=== PATIENT | female | born 1945 | race Caucasian/White ===

== ENCOUNTER 2018-12-01 11:57 | Emergency (ER) | payer MEDICARE ==
[~2018-12-01] VITALS: Ht 162.5 cm; Wt 70.3 kg
[2018-12-09] MEDS ORDERED: TOPROL XL25 MG PO (10:32)
[2018-12-09] MEDS ORDERED: ULTRAM50 MG PO (10:33)
[2018-12-09] MEDS ORDERED: PROTONIX40 MG PO (10:33)
[2018-12-09] MEDS ORDERED: FISH OIL 1,2001 EAC5 PO (10:34)
[2018-12-09] MEDS ORDERED: VITAMIN B121000 MC1 PO (10:35)
[2018-12-09] MEDS ORDERED: VITAMIN D32000 UNIT PO (10:35)
[2018-12-09] MEDS ORDERED: MELATONIN5 M6 PO (10:36)
[2018-12-13] MEDS ORDERED: ZOFRAN4 MG PO (09:31)
[2018-12-13] MEDS ORDERED: VICODIN 5-3001 EACH PO (09:32)
== END 2018-12-01 14:10 | disposition home or self-care (01) ==
LOC: ED 11:57
DX: S52.592A Other fractures of lower end of left radius, initial encounter for closed fracture (principal); S01.412A Laceration without foreign body of left cheek and temporomandibular area, initial encounter; Z88.2 Allergy status to sulfonamides; Z88.6 Allergy status to analgesic agent; Z88.8 Allergy status to other drugs, medicaments and biological substances; Z88.5 Allergy status to narcotic agent; W18.49XA Other slipping, tripping and stumbling without falling, initial encounter; Y93.01 Activity, walking, marching and hiking; Y92.89 Other specified places as the place of occurrence of the external cause; Y99.9 Unspecified external cause status

== ENCOUNTER → 2018-12-13 | Day surgery (SDC) | payer MEDICARE ==
[2018-12-09 10:20] VITALS: BP 135/85
[2018-12-09 11:55] LABS: BASO # 0.1 10*3/uL (0.0-0.1); BASO % 1.2 % (0.0-1.0); HEMATOCRIT 41.5 % (37.0-47.0); HEMOGLOBIN 13.4 g/dl (12.0-16.0); LYMPH # 1.4 10*3/uL (1.3-4.4); LYMPH % 27.8 % (27.0-41.0); MEAN CELL VOLUME 102.2 fl (81.0-99.0); MEAN CORPUSCULAR HGB CONC 32.3 g/dl (33.0-37.0); MEAN PLATELET VOLUME 10.3 fl (9.6-12.3); MONO # 0.5 10*3/uL (0.1-1.0); MONO % 9.1 % (3.0-9.0); NEUT % 61.5 % (47.0-73.0); PLATELET COUNT AUTOMATED 233 10*3/uL (130-400); RED BLOOD COUNT 4.06 10*6/uL (4.10-5.10); RED CELL DISTRI WIDTH 13.8 % (0-14.5); WHITE BLOOD COUNT 4.9 10*3/uL (4.8-10.8)
[2018-12-09 12:06] LABS: BILIRUBIN NEGATIVE (NEGATIVE); BLOOD NEGATIVE (NEGATIVE); CLARITY CLEAR (CLEAR); COLOR YELLOW (YELLOW); GLUCOSE NEGATIVE (NEGATIVE); KETONE NEGATIVE (NEGATIVE); LEUKO ESTERASE 1+ (NEGATIVE); NITRITE NEGATIVE (NEGATIVE); PH 5.5 (5.0-9.0); UROBILINOGEN 0.2 E.U./dl (0.2-1.0)
[2018-12-09 12:09] LABS: ALBUMIN 3.6 gm/dl (3.1-4.5); CREATININE 1.11 mg/dL (0.55-1.02); POTASSIUM 4.5 mmol/L (3.5-5.1); TOTAL PROTEIN 7.4 gm/dL (6.4-8.2)
[2018-12-09 12:19] LABS: BACTERIA 2+
[~2018-12-13] VITALS: Ht 162.5 cm; Wt 68.0 kg
[~2018-12-13] MED LIST: FISH OIL 1,2001 EAC5 PO; MELATONIN5 M6 PO; PROTONIX40 MG PO; TOPROL XL25 MG PO; ULTRAM50 MG PO; VICODIN 5-3001 EACH PO; VITAMIN B121000 MC1 PO; VITAMIN D32000 UNIT PO; ZOFRAN4 MG PO
--- NOTE | ~2018-12-13 | EKG ---
[place], [place] ELECTROCARDIOGRAM REPORT NAME: LUC LIVE V UNIT #: [id number] ROOM: DOCTOR: RAVI DRAFT REPORT BIRTHDATE: [birth year] [facility] Test Date: 2018-12-09 Test Time: 11:49:36 Pat Name: LUC LIVE Department: Room: Gender: F Health Safety Specialist: [address] : 1945 Requested By: MAREK LIGHT Order Number: [id number] Reading MD: Reilly Simmons MD Measurements Intervals [place] Rate: 63 P: 32 [place]: 137 QRS: -13 QRSD: 91 T: -9 QT: 405 QTc: 415 Interpretive Statements Sinus rhythm Nonspecific T abnormalities, inferior leads Borderline ST elevation, lateral leads No previous ECG available for comparison Electronically Signed On 12-15-2018 8:05:31 PDT by Reilly Simmons MD CM:EKGRPT:ELECTROCARDIOGRAM REPORT [id number] MAREK LAWRENCE DRAFT REPORT MAREK LIGHT DO
[2018-12-13 07:01] VITALS: BP 121/79
[2018-12-13 09:18] VITALS: BP 142/70
[2018-12-13 09:30] VITALS: BP 127/61
[2018-12-13 09:45] VITALS: BP 134/69
[2018-12-13 10:00] VITALS: BP 148/73
[2018-12-13 10:15] VITALS: BP 129/68
== END | disposition home or self-care (01) ==
LOC: SDC 12-08 10:15
PROVIDERS: Orthopaedic Surgery
DX: S52.572A Other intraarticular fracture of lower end of left radius, initial encounter for closed fracture (principal); W19.XXXA Unspecified fall, initial encounter; Y93.89 Activity, other specified; Y92.89 Other specified places as the place of occurrence of the external cause; Y99.8 Other external cause status; I10 Essential (primary) hypertension; M54.9 Dorsalgia, unspecified; M19.90 Unspecified osteoarthritis, unspecified site; G89.29 Other chronic pain; K21.9 Gastro-esophageal reflux disease without esophagitis; Z88.2 Allergy status to sulfonamides; Z88.1 Allergy status to other antibiotic agents; Z88.8 Allergy status to other drugs, medicaments and biological substances; Z90.49 Acquired absence of other specified parts of digestive tract; Z98.890 Other specified postprocedural states; Z87.891 Personal history of nicotine dependence; Z79.899 Other long term (current) drug therapy; Z98.51 Tubal ligation status

== ENCOUNTER → 2019-01-30 | Outpatient (CLI) | payer MEDICARE | END | disposition home or self-care (01) | LOC: ORTHO 00:20 | DX: S52.572D Other intraarticular fracture of lower end of left radius, subsequent encounter for closed fracture with routine healing (principal); E55.9 Vitamin D deficiency, unspecified; M25.751 Osteophyte, right hip; X58.XXXD Exposure to other specified factors, subsequent encounter ==

== ENCOUNTER → 2019-03-10 | Outpatient (CLI) | payer MEDICARE | END | disposition home or self-care (01) | LOC: RAD 02-03 13:00 | DX: M81.0 Age-related osteoporosis without current pathological fracture (principal); S52.572D Other intraarticular fracture of lower end of left radius, subsequent encounter for closed fracture with routine healing; E55.9 Vitamin D deficiency, unspecified; Z78.0 Asymptomatic menopausal state ==

== ENCOUNTER → 2019-03-13 | Outpatient (CLI) | payer MEDICARE | END | disposition home or self-care (01) | LOC: ORTHO 01:57 | DX: S52.572D Other intraarticular fracture of lower end of left radius, subsequent encounter for closed fracture with routine healing (principal); X58.XXXD Exposure to other specified factors, subsequent encounter ==

== ENCOUNTER → 2022-08-19 | Day surgery (SDC) | payer MEDICARE ==
[~2022-08-19] VITALS: Ht 1645 cm; Wt 70.3 kg
[2022-08-19 11:59] VITALS: BP 142/76
[2022-08-19 12:23] VITALS: BP 153/72
[2022-08-19 12:38] VITALS: BP 138/78
[2022-08-19 12:53] VITALS: BP 137/76
== END | disposition home or self-care (01) ==
LOC: SDC 08-17 13:15
PROVIDERS: ATTEND Ophthalmology
DX: E11.36 Type 2 diabetes mellitus with diabetic cataract (principal); H25.812 Combined forms of age-related cataract, left eye; I10 Essential (primary) hypertension; K21.9 Gastro-esophageal reflux disease without esophagitis; Z88.1 Allergy status to other antibiotic agents; Z88.8 Allergy status to other drugs, medicaments and biological substances; Z79.84 Long term (current) use of oral hypoglycemic drugs; Z79.899 Other long term (current) drug therapy

== ENCOUNTER → 2022-09-16 | Day surgery (SDC) | payer MEDICARE ==
[~2022-09-16] VITALS: Ht 162.5 cm; Wt 70.3 kg
[~2022-09-16] MED LIST changes: +OCUFLOX 0.3% 5 M5 ML OP; +PRED FORTE5 ML OD
[2022-09-16 07:20] VITALS: BP 140/67
[2022-09-16 08:31] VITALS: BP 119/61
[2022-09-16 08:46] VITALS: BP 131/66
[2022-09-16 09:01] VITALS: BP 122/68
== END | disposition home or self-care (01) ==
LOC: SDC 09-11 12:30
PROVIDERS: ATTEND Ophthalmology
DX: E11.36 Type 2 diabetes mellitus with diabetic cataract (principal); H25.811 Combined forms of age-related cataract, right eye; I10 Essential (primary) hypertension; K21.9 Gastro-esophageal reflux disease without esophagitis; Z87.891 Personal history of nicotine dependence; F41.9 Anxiety disorder, unspecified; Z90.89 Acquired absence of other organs; Z98.890 Other specified postprocedural states; Z88.1 Allergy status to other antibiotic agents; Z88.8 Allergy status to other drugs, medicaments and biological substances; Z79.899 Other long term (current) drug therapy

== ENCOUNTER → 2024-02-07 | Outpatient (CLI) | payer MEDICARE | END | disposition home or self-care (01) | LOC: RAD 17:50 | PROVIDERS: ATTEND Nurse Practitioner Primary Care | DX: M25.551 Pain in right hip (principal); M25.552 Pain in left hip ==

== ENCOUNTER → 2024-03-06 | Outpatient (CLI) | payer MEDICARE | LOC: RAD 15:44 | PROVIDERS: ATTEND Chiropractor | DX: M19.011 Primary osteoarthritis, right shoulder (principal); M47.812 Spondylosis without myelopathy or radiculopathy, cervical region; M48.02 Spinal stenosis, cervical region; M41.86 Other forms of scoliosis, lumbar region; M47.816 Spondylosis without myelopathy or radiculopathy, lumbar region; M54.2 Cervicalgia; M25.511 Pain in right shoulder; M54.50 Low back pain, unspecified ==

== ENCOUNTER → 2024-12-08 | Outpatient (CLI) | payer MEDICARE ==
[~2024-12-08] MED LIST changes: +ASPIRIN CHILDRE81 MG PO; +BERBERINE500 MG PO; +CLOPIDOGREL75 MG PO; +LIPITOR40 MG PO; +MAGNESIUM500 MG PO; +POTASSIUM99 M7 PO; +PREVAGEN PO; +[UNRECOGNIZED DRUG - OTHER] PO
== END | disposition home or self-care (01) ==
LOC: MRI 12-07 09:00
PROVIDERS: ATTEND Nurse Practitioner Primary Care
DX: M70.61 Trochanteric bursitis, right hip (principal); M25.551 Pain in right hip

== ENCOUNTER → 2025-01-05 | Outpatient (CLI) | payer MEDICARE | END | disposition home or self-care (01) | LOC: ORTHO 00:57 | PROVIDERS: ATTEND Orthopaedic Surgery | DX: M16.0 Bilateral primary osteoarthritis of hip (principal); M25.551 Pain in right hip; M25.552 Pain in left hip ==